=== PATIENT | male | born 1955 | race Caucasian/White ===

== ENCOUNTER 2017-01-23 09:38 | Inpatient (IN) ==
--- NOTE | 2017-01-20 20:35 | Discharge Summary ---
<Flora Lin L - Last Filed: 01/22/17 21:06> - Discharge Diagnosis (1) Arthritis of knee, right Priority: Primary Status: Acute (2) CORBIN (obstructive sleep apnea) Priority: Secondary Status: Chronic Comments: *CPAP (3) Obesity Priority: Secondary Status: Chronic Qualifiers: Obesity type: unspecified obesity type Obesity severity: unspecified obesity severity Qualified Code(s): E66.9 - Obesity, unspecified (4) Family history of supraventricular tachycardia Priority: Secondary Status: Chronic (5) CHF (congestive heart failure) Priority: Secondary Status: Chronic Qualifiers: Congestive heart failure type: unspecified congestive heart failure type Congestive heart failure chronicity: unspecified congestive heart failure chronicity Qualified Code(s): I50.9 - Heart failure, unspecified - Discharge Medications Home Medications: Aspirin Enteric Coated [Aspirin EC] 325 mg PO DAILY #21 tablet. 01/22/17 [Rx] OxyCODONE Immed Rel [Roxicodone 5 MG] 5 - 10 mg PO Q6HR PRN #40 tablet 01/22/17 [Rx] Albuterol Sulfate [Albuterol Inhaler] 2 puff IH Q4HR PRN 01/23/17 [History] Aspirin Enteric Coated [Aspirin EC] 81 mg PO DAILY 01/23/17 [History] Doxazosin [Cardura] 8 mg PO HS 01/23/17 [History] Fluticasone/Salmeterol [Advair 250-50 Diskus] 2 puff IH BID 01/23/17 [History] Furosemide [Lasix] 40 mg PO DAILY 01/23/17 [History] Mometasone Furoate [Nasonex] 2 spr NS DAILY PRN 01/23/17 [History] Montelukast [Singulair] 10 mg PO HS 01/23/17 [History] Allergies/Adverse Reactions: Allergies Sulfa (Sulfonamide Antibiotics) Allergy (Verified 01/23/17 10:11) Hives celecoxib [From Celebrex] Adverse Reaction (Verified 01/23/17 10:11) See Comments bleeding Cyclobenzaprine Adverse Reaction (Verified 01/23/17 10:11) Itching Primary care physician: Yo Burdick, - Patient Status Disposition: Transfer Inpatient Rehab Fac Condition: Good - Discharge Instructions Follow Up With: Yo Burdick DO [Primary Care Provider] - - Hospital Course Hospital course: Mr. Dunne is a 61 year old male - Time Spent with Patient Total time spent providing and/or coordinating discharge services: <Ivana Phillipsrenetta Soaresh - Last Filed: 01/25/17 06:54> Date of Encounter: 01/25/17 Time of Encounter: 06:53 - Discharge Diagnosis (1) Arthritis of knee, right Priority: Primary Status: Acute (2) CORBIN (obstructive sleep apnea) Priority: Secondary Status: Chronic (3) Obesity Priority: Secondary Status: Chronic Qualifiers: Obesity type: unspecified obesity type Obesity severity: unspecified obesity severity Qualified Code(s): E66.9 - Obesity, unspecified (4) Family history of supraventricular tachycardia Priority: Secondary Status: Chronic (5) CHF (congestive heart failure) Priority: Secondary Status: Chronic Qualifiers: Congestive heart failure type: combined Congestive heart failure chronicity : unspecified congestive heart failure chronicity Qualified Code(s): I50.40 - Unspecified combined systolic (congestive) and diastolic (congestive) heart failure Primary care physician: Yo Burdick, - Patient Status Functional capacity at discharge: uses cane/walker Overall status at discharge: patient is progressing back to baseline - Hospital Course Hospital course: Mr. Dunne is a 61 year old male The patient had an uneventful postoperative course. They received antibiotics and physical therapy and were discharged in stable condition. There will follow -up in the office in 2 weeks. Aspirin DVT prophylaxis - Time Spent with Patient Total time spent providing and/or coordinating discharge services:
[2017-01-23] MEDS ORDERED: Albuterol 2.5 MG/3 ML NEBULIZER IH ONE (10:04)
[2017-01-23] MEDS ORDERED: CeFAZolin Pre 2,000 MG/100 ML 2,000 MG/100 ML BAG IVPB ONE (10:04)
--- NOTE | 2017-01-23 10:17 | History & Physical Report ---
Date of Encounter: 01/23/17 Time of Encounter: 10:16 24 Hour HP Update - Instructions Instructions: If the History and Physical is less than 30 days old and was completed prior to A.M. admission and or procedure and has NOT been updated on calendar day of procedure please complete this update prior to performing procedure. - Update Patient reports changes in Medical Condition: No Changes in assessment/condition: No Changes in Medication: No Preop tests/diagnostics Reviewed: Yes Surgery Remains Indicated: Yes Consent for Planned Operative Procedure(s) Verified: Yes - Pre-Operative Checklist Preoperative Checklist Indicated: No Prophylactic Antibiotic Ordered: Yes Is VTE Prophylaxis Indicated?: Yes
[2017-01-23] MEDS ORDERED: Famotidine 20 MG/2 ML VIAL IVP ONE (10:23)
[2017-01-23] MEDS: Ringers Solution, Lactated 500 ML IVC SCH ×3 (10:25→13:18)
--- NOTE | 2017-01-23 11:14 | Anesthesia Evaluation PreOp ---
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: Denies Any Significant HX Other Medical History: GERD Anesthesia History: No Prior Anesthetic Complications Alcohol Use: none Drug use: none Medications and Allergies Aspirin Enteric Coated [Aspirin EC] 325 mg PO DAILY #21 tablet.dr 01/22/17 [Rx] OxyCODONE Immed Rel [Roxicodone 5 MG] 5 - 10 mg PO Q6HR PRN #40 tablet 01/22/17 [Rx] Albuterol Sulfate [Albuterol Inhaler] 2 puff IH Q4HR PRN 01/23/17 [History] Aspirin Enteric Coated [Aspirin EC] 81 mg PO DAILY 01/23/17 [History] Doxazosin [Cardura] 8 mg PO HS 01/23/17 [History] Fluticasone/Salmeterol [Advair 250-50 Diskus] 2 puff IH BID 01/23/17 [History] Furosemide [Lasix] 40 mg PO DAILY 01/23/17 [History] Mometasone Furoate [Nasonex] 2 spr NS DAILY PRN 01/23/17 [History] Montelukast [Singulair] 10 mg PO HS 01/23/17 [History] Allergies Sulfa (Sulfonamide Antibiotics) Allergy (Verified 01/23/17 10:11) Hives celecoxib [From Celebrex] Adverse Reaction (Verified 01/23/17 10:11) See Comments bleeding Cyclobenzaprine Adverse Reaction (Verified 01/23/17 10:11) Itching - Meds/Allergy Pre-op Review Medications Reviewed: Yes Allergies Reviewed: Yes Beta Blockers on Current Med List: No Anesthesia Results - Labs Laboratory Tests 01/16/17 01/16/17 01/16/17 14:00 14:00 14:00 Hgb 14.5 Hct 42.3 Plt Count 184 Sodium 137 Potassium 4.2 BUN 16 Creatinine 0.93 - Imaging EKG: report reviewed (SR) Additional studies: EF 55-60% ECHO 2015 Stress test Neg Anesthesia Exam O2 Sat Height 1.75 m Height 1.75 m Height 1.75 m Weight 110.223 kg Weight 110.223 kg Weight 110.223 kg O2 Sat by Pulse Oximetry 94 O2 Sat by Pulse Oximetry 94 O2 Sat by Pulse Oximetry 94 Vital Signs Temp Pulse Resp BP Pulse Ox 98.5 F 82 16 143/92 94 L 01/23/17 10:00 01/23/17 10:00 01/23/17 10:00 01/23/17 10:00 01/23/17 10:00 Height: 5'9 Weight: 240 lbs NPO (# of Hours): MN Pain Scale: 0 - HEENT Pupil (Motor): Pupils equal, EOMI Teeth: Edentulous Oral Opening: Less than or equal to 3 - ZIPPER TRIMMER HAND LOC: Oriented ZIPPER TRIMMER HAND Motor: Normal RUE, Normal LUE, Normal RLE, Normal LLE, Normal Face ZIPPER TRIMMER HAND Sensory: Normal: RUE, LUE, RLE, LLE, Face - Cardiac Rhythm: Regular Murmur: None JVD: No Carotid Bruit: No - Pulmonary Breath Sounds: bilateral Clear Respiratory Effort: Symmetrical Anesthesia Assess/Plan ASA Score: 3 (CORBIN COPD Hx CHF) Modified [place] Scale for Level of Consciousness: Cooperative, oriented, and tranquil Anesthetic Plan: General, Regional Monitoring Plan: Standard Monitors Recovery Plan: PACU (Discussed GA and RA, agrees to proceed)
[2017-01-23] MEDS ORDERED: *HR* FentaNYL (PF) 100 MCG/2 ML VIAL ONE ×2 (11:35→15:03)
[2017-01-23] MEDS ORDERED: Lidocaine -MPF 2% 2 ML VIAL ONE (11:35)
[2017-01-23] MEDS ORDERED: *HR* Midazolam HCl 2 MG/2 ML VIAL ONE ×2 (11:35→12:41)
[2017-01-23] MEDS ORDERED: *HR* Propofol 200 MG/20 ML VIAL IVP ONE (11:35)
[2017-01-23] MEDS ORDERED: Ondansetron 4 MG/2 ML VIAL ONE (11:37)
[2017-01-23] MEDS ORDERED: Dexamethasone 4 MG/ML VIAL ONE (11:37)
[2017-01-23] MEDS ORDERED: Tetracaine/PF 20 MG/2 ML AMPUL SPINA ONE (12:28)
[2017-01-23] MEDS ORDERED: Bupivacaine/Clonidine Syringe 1 EACH SYRINGE ONE (12:29)
[2017-01-23] MEDS ORDERED: *HR* HYDROmorphone 2 MG/ML SYRINGE ONE (13:12)
--- NOTE | 2017-01-23 13:35 | Orthopedic Operative Note ---
Date of procedure: 01/23/17 Pre-op diagnosis: Right knee arthritis Post-op diagnosis: same Procedure: Procedure: Right Total knee replacement Estimated blood loss: 400 cc Hardware: Arthrex Femur: 7 Tibia: 7 PS insert: 11 Patella: 40 Exam Under anesthesia: Full motion no instability Procedural Notes: Grade 3 arthritic changes medial compartment patellofemoral joint. Operative procedure: The patient was brought to the operating room and placed on the operating room table. After general anesthesia was administered the operative knee was examined. Findings were noted in the exam under anesthesia. The operative extremity was prepped and draped in sterile surgical fashion. The patient received IV antibiotics prior to skin incision. A standard midline incision was made centered over the patella. The incision was made through the skin and subcutaneous tissue. A medial parapatellar tendon approach was performed. Care was taken to preserve tissue along the medial aspect of the patella. And to protect the patella tendon. The deep MCL was released off the medial tibia. The infra patella fat pad was excised. Knee was brought into flexion. Patient noted to have grade 3 arthritic changes medial compartment and patellofemoral joint. The entry hole was made for the intramedullary femoral guide. The guide was seated in 6 degrees of valgus. Anterior cut was made followed by the distal cut. The ACL the PCL the medial and the lateral menisci were excised. The tibia was subluxed forward. The entry hole was made for the intramedullary tibial guide. Guide was seated to resect 2 mm off the more abnormal side. The knee was brought into flexion the distal femur was sized to a 7. The femoral guide was seated, the anterior cut was made followed by the posterior condylar cut, followed by the chamfer cuts. The finishing guide was seated the box cut was made and the lug holes were drilled. The tibia was sized to a 7, the tibial tray was seated and prepared with the large drill followed by the fin cutter. Trial reduction revealed full extension no varus valgus instability with the appropriate 11 PS Karoline. The patella was everted and cut was made at the level of the insertion of the quadriceps and patella tendon. The patella was sized to a 40 the guide was seated and the lug holes are drilled. Trial reduction revealed excellent patella tracking. All trial components were removed all bony surfaces were irrigated. The tibia was cemented first followed by the femur. The 11 PS Karoline was seated and the knee was brought into full extension. The patella was cemented and held in place with the patellar holding clamp. After the cement had hardened, the knee sat for 2 minutes with a Betadine saline solution. The knee was then irrigated out with 2 L of pulse irrigation. The extensor mechanism was closed with #2 FiberWire suture and #2 PDS suture. The subcutaneous tissue was then irrigated and closed deep with #1 PDS suture superficially with 0 PDS suture and skin was closed with skin erik. The patient was then placed in a sterile dressing and a postoperative brace extubated and transferred to recovery room in stable condition. Anesthesia: FARHAN Surgeon: Umesh Phillips [place] Captain: Flora Lin Condition: stable Disposition: PACU
[2017-01-23] MEDS ORDERED: *HR* HYDROmorphone (PF) 1 MG/ML SYRINGE ONE ×4 (14:07→14:37)
[2017-01-23] MEDS: *HR* HYDROmorphone (PF) 1 MG/ML SYRINGE IVP PRN ×9 (14:10→16:43)
[2017-01-23 14:48] LABS: Hematocrit 36.8 % (37.5-50.1)
[2017-01-23] MEDS ORDERED: *HR* FentaNYL (PF) 100 MCG/2 ML VIAL IVP ONE (15:07)
[2017-01-23] MEDS ORDERED: *HR* OxyCODONE Immed Rel 5 MG TABLET PO PRN (15:34)
[2017-01-23] MEDS ORDERED: Ondansetron 4 MG/2 ML VIAL IVP PRN (15:34)
[2017-01-23] MEDS ORDERED: Naloxone 0.4 MG/ML INJ IVP PRN (15:34)
[2017-01-23] MEDS ORDERED: MOM Conc 10 ML UD.LIQ PO PRN (15:34)
[2017-01-23] MEDS ORDERED: Ringers Solution, Lactated 1,000 ML IVC SCH (15:34)
[2017-01-23] MEDS ORDERED: Sennosides 8.6 MG TABLET PO PRN (15:34)
[2017-01-23] MEDS ORDERED: Fluticasone Propionate Nasal 50 MCG/SPRAY BOTTLE NS PRN (15:34)
--- NOTE | 2017-01-23 15:56 | Anesthesia Evaluation Post Op ---
Date of Encounter: 01/23/17 Time of Encounter: 15:20 - Vital Signs Vital Signs: Vital Signs/O2 Sat/Glucose, Most Current Temp Pulse Resp BP Pulse Ox 01/23/17 15:15 97.1 F L 71 16 132/83 97 01/23/17 15:00 97.1 F L 71 16 135/96 97 01/23/17 14:45 71 16 140/91 97 01/23/17 14:30 97.2 F L 73 16 137/63 97 01/23/17 14:20 81 16 136/91 97 01/23/17 14:10 86 16 134/88 99 01/23/17 14:00 97.2 F L 89 16 140/88 99 01/23/17 12:31 92 151/98 98 - Lungs Lungs: Clear Ascult./Percussion - Airway Airway: Non-obstructed - Cardiovascular Regular Rate - Mental Status Mental Status: Alert & Oriented, Answers Appropriately - Pain Pain Scale: 3 - Nausea Vomiting Nausea Vomiting: Not Present - Hydration Hydration: NPO - Discharge PostOp Status: Transfer Patient to floor
[2017-01-23] MEDS: *HR* Enoxaparin 30 MG/0.3 ML SYRINGE SQ SCH (16:43)
[2017-01-23] MEDS ORDERED: *HR* Enoxaparin 30 MG/0.3 ML SYRINGE SQ SCH (18:00)
[2017-01-23] MEDS: ceFAZolin 2,000 MG in D5% in Water 100 ML IVPB SCH (19:56)
[2017-01-23] MEDS ORDERED: Temazepam 15 MG CAPSULE PO PRN (21:00)
[2017-01-23] MEDS: Budesonide/Formoterol 80/4.5 MDI IH SCH (22:31)
[2017-01-24] MEDS: *HR* OxyCODONE Immed Rel 5 MG TABLET PO PRN ×5 (01:16→23:47)
[2017-01-24] MEDS: Acetaminophen 325 MG TABLET PO PRN (03:36)
[2017-01-24] MEDS: ceFAZolin 2,000 MG in D5% in Water 100 ML IVPB SCH (03:41)
[2017-01-24] MEDS: *HR* Enoxaparin 30 MG/0.3 ML SYRINGE SQ SCH ×2 (05:45→17:51)
--- NOTE | 2017-01-24 06:40 | Orthopedics Progress Note ---
Date of Encounter: 01/24/17 Time of Encounter: 06:40 - Assessment and Plan (1) Arthritis of knee, right Current Visit: Yes Status: Acute (2) CORBIN (obstructive sleep apnea) Current Visit: Yes Status: Chronic (3) Obesity Current Visit: Yes Status: Chronic Qualifiers: Obesity type: unspecified obesity type Obesity severity: unspecified obesity severity Qualified Code(s): E66.9 - Obesity, unspecified (4) Family history of supraventricular tachycardia Current Visit: Yes Status: Chronic (5) CHF (congestive heart failure) Current Visit: Yes Status: Chronic Qualifiers: Congestive heart failure type: combined Congestive heart failure chronicity : unspecified congestive heart failure chronicity Qualified Code(s): I50.40 - Unspecified combined systolic (congestive) and diastolic (congestive) heart failure Subjective Interval history: pt doing well no complaints afvss operative extremity NVI dressing c/d/i calves nt continue postop care hct 36 Objective Vital signs: Vital Signs Temp Pulse Resp BP Pulse Ox 01/24/17 04:00 97.5 F L 70 16 134/85 96 01/24/17 00:00 97.7 F 74 15 123/80 98 01/23/17 20:19 97.6 F 73 12 120/81 94 L 01/23/17 19:30 97.7 F 74 12 119/73 95 01/23/17 18:36 97.7 F 83 18 125/73 95 01/23/17 17:31 77 18 115/82 93 L 01/23/17 16:39 97.6 F 77 18 115/82 93 L 01/23/17 15:54 98 F 73 18 122/71 95 01/23/17 15:15 97.1 F L 71 16 132/83 97 01/23/17 15:00 97.1 F L 71 16 135/96 97 01/23/17 14:45 71 16 140/91 97 01/23/17 14:30 97.2 F L 73 16 137/63 97 01/23/17 14:20 81 16 136/91 97 01/23/17 14:10 86 16 134/88 99 01/23/17 14:00 97.2 F L 89 16 140/88 99 01/23/17 12:31 92 151/98 98 01/23/17 10:09 98.5 F 82 16 143/92 94 L 01/23/17 10:00 98.5 F 82 16 143/92 94 L Intake and Output 01/23/17 01/23/17 01/24/17 15:59 23:59 07:59 Intake Total 1100 / 1100 300 / 300 200 / 200 Output Total 200 / 200 200 / 200 Balance 900 / 900 300 / 300 0 / 0 Intake: IV Fluids 1100 / 1100 100 / 100 Lactated Ringers 500 ML @ 1000 / 1000 75 mls/hr IVC .Q6H40M [facility] Rx#:[id number] Ancef 2,000 MG In 100 / 100 Dextrose 5% 100 ML @ 200 mls/hr IVPB Q8H [facility] Rx#: [id number] Ancef Premix 2,000 MG/100 100 / 100 ML 2,000 mg In 100 ml @ 200 mls/hr IVPB PREOP ONE Rx#:[id number] Oral 200 / 200 200 / 200 Output: Emesis 200 / 200 Estimated Blood Loss 200 / 200 Other: Meal Dinner Percent of Meal Consumed 100% # Voids 1 1 Weight 110.223 kg - Labs CBC & BMP: 01/23/17 14:38 Labs: Abnormal lab results Hgb 12.0 g/dL (12.9-16.9) L 01/23/17 14:38 Hct 36.8 % (37.5-50.1) L 01/23/17 14:38 - VTE Documentation of Mechanical Device: Venous foot pump, device Consult Discharge Plan - Plan Referrals: Yo Burdick DO [Primary Care Provider] -
[2017-01-24 06:42] LABS: Hematocrit 32.1 % (37.5-50.1); Hemoglobin 10.6 g/dL (12.9-16.9)
[2017-01-24 06:55] LABS: BUN/Creatinine Ratio 16 (6-26); Blood Urea Nitrogen 14 mg/dL (8-26); Calcium 7.8 mg/dL (8.6-10.8); Carbon Dioxide 24 mEq/L (19-29); Chloride 106 mEq/L (98-109); Glucose 110 mg/dL (70-99); Osmolality,Calculated 285 (280-300); Potassium 3.8 mEq/L (3.5-4.5); Sodium 137 mEq/L (136-145); eGFR For African Americans > 60 (> 60); eGFR For Non-African Americans > 60 (> 60)
[2017-01-24] MEDS: Furosemide 40 MG TABLET PO SCH (09:15)
[2017-01-24] MEDS: Aspirin Enteric Coated 81 MG Tablet PO SCH (09:15)
[2017-01-24] MEDS: Budesonide/Formoterol 80/4.5 MDI IH SCH ×2 (10:38→22:57)
[2017-01-24] MEDS ORDERED: *HR* HYDROmorphone 2 MG/ML SYRINGE IVP ONE (13:31)
[2017-01-24] MEDS: *HR* HYDROmorphone (PF) 1 MG/ML SYRINGE IVP PRN (21:27)
[2017-01-25] MEDS: *HR* OxyCODONE Immed Rel 5 MG TABLET PO PRN ×2 (03:46→09:05)
[2017-01-25] MEDS: *HR* Enoxaparin 30 MG/0.3 ML SYRINGE SQ SCH (05:22)
--- NOTE | 2017-01-25 06:54 | Orthopedics Progress Note ---
Date of Encounter: 01/25/17 Time of Encounter: 06:54 - Assessment and Plan (1) Arthritis of knee, right Current Visit: Yes Status: Acute (2) CORBIN (obstructive sleep apnea) Current Visit: Yes Status: Chronic (3) Obesity Current Visit: Yes Status: Chronic Qualifiers: Obesity type: unspecified obesity type Obesity severity: unspecified obesity severity Qualified Code(s): E66.9 - Obesity, unspecified (4) Family history of supraventricular tachycardia Current Visit: Yes Status: Chronic (5) CHF (congestive heart failure) Current Visit: Yes Status: Chronic Qualifiers: Congestive heart failure type: combined Congestive heart failure chronicity : unspecified congestive heart failure chronicity Qualified Code(s): I50.40 - Unspecified combined systolic (congestive) and diastolic (congestive) heart failure Subjective Interval history: pt doing well no complaints afvss operative extremity NVI dressing c/d/i calves nt continue postop care discharged today Objective Vital signs: Vital Signs Temp Pulse Resp BP Pulse Ox 01/25/17 06:22 99.6 F 90 16 148/84 95 01/25/17 03:32 99.1 F 96 96 01/24/17 23:49 99.2 F 107 16 132/79 96 01/24/17 21:00 99.8 F H 94 17 156/88 96 01/24/17 14:57 96.6 F L 93 16 148/87 95 01/24/17 10:54 98.9 F 91 16 140/70 97 01/24/17 10:44 18 97 01/24/17 07:00 99.7 F H 86 16 137/65 95 Intake and Output 01/24/17 01/24/17 01/25/17 15:59 23:59 07:59 Intake Total 400 / 400 400 / 400 Output Total 350 / 350 Balance 400 / 400 50 / 50 Intake: Oral 400 / 400 400 / 400 Output: Urine 350 / 350 Other: Meal Lunch Percent of Meal Consumed 70% # Voids 1 1 - Labs CBC & BMP: 01/24/17 06:07 01/24/17 06:07 Labs: Abnormal lab results Hgb 10.6 g/dL (12.9-16.9) L 01/24/17 06:07 Hct 32.1 % (37.5-50.1) L 01/24/17 06:07 Glucose 110 mg/dL (70-99) H 01/24/17 06:07 Calcium 7.8 mg/dL (8.6-10.8) L 01/24/17 06:07 - VTE Documentation of Mechanical Device: Venous foot pump, device Consult Discharge Plan - Plan Referrals: Yo Burdick DO [Primary Care Provider] -
[2017-01-25 06:56] LABS: Hematocrit 33.9 % (37.5-50.1)
[2017-01-25 07:07] LABS: BUN/Creatinine Ratio 15 (6-26); Blood Urea Nitrogen 13 mg/dL (8-26); Carbon Dioxide 25 mEq/L (19-29); Chloride 103 mEq/L (98-109); Glucose 115 mg/dL (70-99); Osmolality,Calculated 283 (280-300); Potassium 3.8 mEq/L (3.5-4.5); Sodium 136 mEq/L (136-145); eGFR For African Americans > 60 (> 60); eGFR For Non-African Americans > 60 (> 60)
[2017-01-25 07:17] LABS: Calcium 8.5 mg/dL (8.6-10.8)
[2017-01-25] MEDS: Acetaminophen 325 MG TABLET PO PRN (08:08)
[2017-01-25] MEDS: Aspirin Enteric Coated 81 MG Tablet PO SCH (08:08)
[2017-01-25] MEDS: Furosemide 40 MG TABLET PO SCH (08:10)
[2017-01-25] MEDS: Budesonide/Formoterol 80/4.5 MDI IH SCH (10:19)
[2017-01-25 10:36] VITALS: BP 142/81
== END 2017-01-25 12:12 | DRG 470 ==
LOC: SAMDAY 09:38 → 3NENU 15:28
PROVIDERS: ADMIT Orthopaedic Surgery; ATTEND Orthopaedic Surgery

== ENCOUNTER 2018-10-01 06:43 | Inpatient (IN) ==
--- NOTE | 2018-10-01 06:53 | History & Physical Report ---
Date of Encounter: 10/01/18 Time of Encounter: 06:53 24 Hour HP Update - Instructions Instructions: If the History and Physical is less than 30 days old and was completed prior to A.M. admission and or procedure and has NOT been updated on calendar day of procedure please complete this update prior to performing procedure. - Update Patient reports changes in Medical Condition: No Changes in examination, assessment, or condition: No Changes in Medication: No Preop tests/diagnostics Reviewed: Yes Surgery Remains Indicated: Yes Consent for Planned Operative Procedure(s) Verified: Yes - Pre-Operative Checklist Preoperative Checklist Indicated: No Prophylactic Antibiotic Ordered: Yes Is VTE Prophylaxis Indicated?: Yes
[2018-10-01] MEDS ORDERED: CeFAZolin Syr 2,000MG/20 ML 2,000 MG/20 ML SYRINGE IVPB ONE (07:02)
[2018-10-01] MEDS ORDERED: Albuterol 2.5 MG/3 ML NEBULIZER IH ONE (07:02)
[2018-10-01] MEDS ORDERED: Ringers Solution, Lactated 1,000 ML IVC SCH (07:15)
--- NOTE | 2018-10-01 07:17 | Anesthesia Evaluation PreOp ---
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: Denies Any Significant HX Other Medical History: GERD Anesthesia History: No Prior Anesthetic Complications, Past Anesthesia Alcohol Use: none Drug use: none Medications and Allergies Albuterol Sulfate [Albuterol Inhaler] 2 puff IH Q4HR PRN 01/23/17 [History] Aspirin Enteric Coated [Aspirin EC] 81 mg PO DAILY 01/23/17 [History] Doxazosin [Cardura] 8 mg PO HS 01/23/17 [History] Fluticasone/Salmeterol [Advair 250-50 Diskus] 2 puff IH BID 01/23/17 [History] Furosemide [Lasix] 40 mg PO DAILY 01/23/17 [History] Montelukast [Singulair] 10 mg PO HS 01/23/17 [History] Allergy/AdvReac Type Severity Reaction Status Date / Time Sulfa (Sulfonamide Allergy Hives Verified 10/01/18 08:05 Antibiotics) celecoxib [From Celebrex] AdvReac See Verified 10/01/18 08:05 Comments - Meds/Allergy Pre-op Review Medications Reviewed: Yes Allergies Reviewed: Yes Beta Blockers on Current Med List: No Anesthesia Results - Labs Laboratory Tests 09/24/18 09/24/18 09/24/18 16:20 16:20 16:20 WBC 7.2 Hgb 13.2 Hct 39.4 Plt Count 166 PT 11.8 INR 1.0 APTT 28.9 Sodium 139 Potassium 3.9 BUN 20 Creatinine 0.87 - Imaging EKG: report reviewed (01/16/2017 SINUS RHYTHM POSSIBLE LEFT ATRIAL ENLARGEMENT) Additional studies: 07/13/2018 Stress Impression: Perfusion study is negative for ischemia or infarct. Normal perfusion study. Stress LVEF 67%. No ischemic stress ECG findings. Hypertensive response during stress test. 08/03/2015 Echo LVEF 60% normal LV structure and function mild LV diastolic dysfunction no significant valvular dysfunction. 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
[2018-10-01] MEDS ORDERED: Lidocaine -MPF 4% 5 ML AMPUL ONE (07:35)
[2018-10-01] MEDS ORDERED: *HR* FentaNYL (PF) 100 MCG/2 ML VIAL ONE ×2 (07:35→09:01)
[2018-10-01] MEDS ORDERED: *HR* Succinylcholine 200 MG/10 ML VIAL IVP ONE (07:35)
[2018-10-01] MEDS ORDERED: *HR* Rocuronium Bromide 50 MG/5 ML VIAL ONE (07:35)
[2018-10-01] MEDS ORDERED: Lidocaine -MPF 2% 2 ML VIAL ONE (07:35)
[2018-10-01] MEDS ORDERED: *HR* Midazolam HCl 2 MG/2 ML VIAL ONE (07:36)
[2018-10-01] MEDS ORDERED: *HR* Propofol 200 MG/20 ML VIAL IVP ONE (07:36)
[2018-10-01] MEDS ORDERED: Ethanol\\Acetic Acid\\Na Ace\\Ben 1,000 ML IRRIG.SOLN IR ONE (07:40)
[2018-10-01] MEDS ORDERED: *HR* Promethazine 25 MG/ML VIAL IVP PRN (07:42)
[2018-10-01] MEDS ORDERED: Ondansetron 4 MG/2 ML VIAL IVP ONE (07:42)
[2018-10-01] MEDS ORDERED: *HR* Labetalol 20 MG/4 ML SYRINGE IVP PRN (07:42)
[2018-10-01] MEDS ORDERED: *HR* OxyCODONE Immed Rel 5 MG TABLET PO PRN (07:42)
[2018-10-01] MEDS ORDERED: *HR* Meperidine 25 MG/ML SYRINGE IVP PRN (07:42)
[2018-10-01] MEDS ORDERED: ROPIVACAINE HCL/PF 0.5% 30 ML VIAL ONE (08:08)
[2018-10-01] MEDS ORDERED: *HR* EPINEPHrine 1 MG/ML AMPUL ONE (08:08)
[2018-10-01] MEDS ORDERED: Bupivacaine/Clonidine Syringe 1 EACH SYRINGE ONE (08:08)
[2018-10-01] MEDS ORDERED: *HR* Midazolam HCl 5 MG/5 ML VIAL IVP ONE (08:33)
--- NOTE | 2018-10-01 08:47 | Anesthesia Procedures ---
Date of Encounter: 10/01/18 Time of Encounter: 08:45 Procedures: Anesthesia - Nerve Block Procedure Date: 10/01/18 Time: 08:45 Allergies/Adv Reactions: sulfa, celecoxib Pre-op Diagnosis: L knee aseptic loosening tibia Surgical Procedure: L TKA, L tibia revision Checklist: Correct Patient Identifier, Correct procedure, History checked Correct side: Left Blood Thinner: Yes (81mg ASA) Monitor Applied: EKG, BP, Pulse Oximetry Supplemental Oxygen via Nasal Cannula (L/min): 3 Sedation: Versed (mg): 6 Sedation: Fentanyl (mcg): 200 Indication: Post Op Analgesia (requested by Dr. Phillips) Pre-op Neuro Deficits: No Block Type: Femoral, Other (iPAC, JACKIE) Catheter placed: No Sterile Technique: Yes Ultrasound used: Yes Anatomy identified: Yes Visual spread of Local: Yes Neuro Stimulation: Yes Nerve Stimulator Range: 0.2 - 0.4 mA Blood on Needle Aspiration: No Smooth Injection of Local: Yes Pain with Injection of Local: No Prep: Chlorhexadine Needle: 22 x 50 mm Stimuplex (for femoral n. block), 21 x 100 mm Stimuplex (for iPAC & JACKIE injections) Local: 0.25% Bupivicaine w/Clonidine 20 mcg/cc (10mL for iPAC, 10mL for JACKIE), Ropivacaine (30mL of 0.5% + 5mcg/mL epinephrine + 8mg dexamethasone for femoral n. block) Number of Attempts: 1 Complications: None/effective block Vitals: please see holding vital signs note
[2018-10-01] MEDS ORDERED: Neostigmine Methylsulfate 3 MG/3 ML SYRINGE ONE (09:14)
[2018-10-01] MEDS ORDERED: Dexamethasone 4 MG/ML VIAL ONE (09:14)
[2018-10-01] MEDS ORDERED: Ondansetron 4 MG/2 ML VIAL ONE (09:14)
[2018-10-01] MEDS ORDERED: *HR* PHENYLEPHRINE 1,000 MCG/10 ML SYRINGE IVP ONE (09:23)
[2018-10-01] MEDS ORDERED: EPHEDrine 50 MG/ML VIAL ONE (09:29)
--- NOTE | 2018-10-01 09:58 | Orthopedic Operative Note ---
Date of procedure: 10/01/18 Pre-op diagnosis: Aseptic loosening left tibial component Post-op diagnosis: same Procedure: Procedure: Left revision tibial component Estimated blood loss: 200 cc Hardware: Metal and polyethylene replacement Arthrex tibia size 4, 14 x 50stem, 18 PS Karoline Exam Under anesthesia: Full flexion full extension well-healed incision no swelling or erythema no varus valgus instability Procedural Notes: Loosening of tibial component Operative procedure: The patient was brought to the operating room and placed on the operating room table. After general anesthesia was administered the operative knee was examined. Findings were noted in the exam under anesthesia. The operative extremity was prepped and draped in sterile surgical fashion. The patient received IV antibiotics prior to skin incision. A standard midline incision was made centered over the patella. The incision was made through the skin and subcutaneous tissue through the old incision. A medial parapatellar tendon approach was performed. Care was taken to preserve tissue along the medial aspect of the patella. And to protect the patella tendon. The deep MCL was released off the medial tibia. The infra patella fat pad was excised. Cultures were obtained as well as Gram stain. 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 An extensive synovectomy was performed. The knee was brought into flexion the tibial poly-was removed. The femur was well fixed. Attention was then turned to the tibial component. The tibial component was loose and removed with an osteotome without any bone loss. Tibia was recut just below the level of the cement mantle. The tibia was prepared first sized to a 4 reamed to a 14 x 50 stem. The finishing punch was seated. Trial had good fit and fixation. Trial reduction revealed full extension and full flexion no varus valgus instability with an 18 PS Karoline. Intraoperative plain x-ray revealed good alignment on AP. Trial components removed knee sat for 2 minutes with a antibacterial solution. It was irrigated out with pulse irrigation. Components were assembled on the back table. The tibia cemented. The 18 PS Karoline was seated and secure. The had full flexion and full extension and excellent patella tracking no varus valgus instability. After the cement hardened the knee was irrigated out again. The knee was taken through a range of motion had excellent patella tracking. The PA close the knee. The extensor mechanism was closed with a running #2 Fiberwire suture and a running #2 PDS suture. The deep tissue was irrigated and closed deep with #1 PDS suture superficially with 0 PDS suture. The skin was closed with Dermabond and skin erik. The patient was placed in a sterile dressing and postoperative brace. They were extubated and transferred to recovery room in stable condition. Anesthesia: GETA Surgeon: Umesh Phillips Was there an diver assistant present: No Estimated blood loss (cc): 200 Condition: stable Disposition: PACU
[2018-10-01] MEDS: *HR* HYDROmorphone (PF) 1 MG/ML SYRINGE IVP PRN ×2 (10:35→10:40)
[2018-10-01 11:19] LABS: Hematocrit 37.5 % (37.5-50.1); Hemoglobin 12.4 g/dL (12.9-16.9)
--- NOTE | 2018-10-01 11:26 | Anesthesia Evaluation Post Op ---
Date of Encounter: 10/01/18 Time of Encounter: : - Vital Signs Vital Signs: Vital Signs/O2 Sat, Most Current Temp Pulse Resp BP Pulse Ox 97.7 F 82 15 117/72 95 10/01/18 11:09 10/01/18 11:09 10/01/18 11:09 10/01/18 11:09 10/01/18 11:09 - Lungs Lungs: Clear Ascult./Percussion - Airway Airway: Non-obstructed - Cardiovascular Regular Rate - Mental Status Mental Status: Asleep with brisk response to light stimulation - Pain Pain Scale: 6 Pain Scale used: Numeric (1 - 10) - Nausea Vomiting Nausea Vomiting: Not Present - Hydration Hydration: Ice chips, Has not voided - Discharge PostOp Status: Transfer Patient to floor
[2018-10-01] MEDS ORDERED: Temazepam 15 MG CAPSULE PO PRN (11:40)
[2018-10-01] MEDS ORDERED: Naloxone 0.4 MG/ML INJ IVP PRN (11:40)
[2018-10-01] MEDS ORDERED: Fluticasone Propionate Nasal 50 MCG/SPRAY BOTTLE NS PRN (11:40)
[2018-10-01] MEDS ORDERED: MOM Conc 10 ML UD.LIQ PO PRN (11:40)
[2018-10-01] MEDS ORDERED: Sennosides 8.6 MG TABLET PO PRN (11:40)
[2018-10-01] MEDS ORDERED: Ondansetron 4 MG/2 ML VIAL IVP PRN (11:40)
[2018-10-01] MEDS: Aspirin Enteric Coated 81 MG Tablet PO SCH (12:27)
[2018-10-01] MEDS: Furosemide 40 MG TABLET PO SCH (12:33)
[2018-10-01] MEDS: *HR* OxyCODONE/APAP 5/325 TABLET PO PRN ×3 (12:40→20:40)
[2018-10-01] MEDS: Ringers Solution, Lactated 1,000 ML IVC SCH (16:43)
[2018-10-01] MEDS: *HR* Enoxaparin 30 MG/0.3 ML SYRINGE SQ SCH (16:45)
[2018-10-01] MEDS: Budesonide/Formoterol 80/4.5 MDI IH SCH ×2 (16:46→21:11)
[2018-10-01] MEDS ORDERED: *HR* Enoxaparin 30 MG/0.3 ML SYRINGE SQ SCH (18:00)
[2018-10-02] MEDS: *HR* OxyCODONE/APAP 5/325 TABLET PO PRN (00:43)
[2018-10-02] MEDS: Ringers Solution, Lactated 1,000 ML IVC SCH (01:02)
[2018-10-02] MEDS: *HR* HYDROcodone/Acet 5/325 mg TABLET PO PRN ×3 (03:21→16:21)
[2018-10-02 05:28] LABS: Hematocrit 34.2 % (37.5-50.1); Hemoglobin 11.4 g/dL (12.9-16.9)
[2018-10-02 05:46] LABS: BUN/Creatinine Ratio 24 (6-26); Blood Urea Nitrogen 20 mg/dL (8-23); Calcium 8.3 mg/dL (8.6-10.3); Carbon Dioxide 22 mEq/L (23-29); Chloride 107 mEq/L (98-107); Glucose 173 mg/dL (70-105); Osmolality,Calculated 291 (280-300); Potassium 4.2 mEq/L (3.5-5.1); Sodium 137 mEq/L (136-145); eGFR For Non-African Americans > 60 (> 60)
[2018-10-02] MEDS: *HR* Enoxaparin 30 MG/0.3 ML SYRINGE SQ SCH ×2 (06:07→17:56)
--- NOTE | 2018-10-02 06:35 | Orthopedics Progress Note ---
Date of Encounter: 10/02/18 Time of Encounter: 06:35 Subjective Interval history: Patient was seen this morning doing well without complaints. Afebrile vital signs stable. Operative extremity: Neurovascularly intact Dressing clean dry and intact Calves nontender Assessment and plan: Continue with postoperative care Gram stain negative Objective Vital signs: Vital Signs Temp Pulse Resp BP Pulse Ox 10/02/18 03:59 98.3 F 70 17 118/70 95 10/01/18 23:23 98.7 F 82 17 135/73 96 10/01/18 21:12 14 96 10/01/18 20:48 96 10/01/18 19:38 98.1 F 79 17 127/67 96 10/01/18 15:00 98.2 F 90 115/75 95 10/01/18 13:30 97.8 F 88 122/78 95 10/01/18 12:28 97.9 F 64 122/58 95 10/01/18 11:27 97.4 F L 68 16 112/67 96 10/01/18 11:09 97.7 F 82 15 117/72 95 10/01/18 10:59 97.7 F 77 14 110/75 95 10/01/18 10:49 74 15 115/62 95 10/01/18 10:39 96 17 125/66 96 10/01/18 10:29 97.3 F L 99 18 131/81 95 10/01/18 08:38 79 16 116/77 95 10/01/18 08:20 94 16 128/84 97 10/01/18 07:59 98.5 F 76 18 121/78 94 Intake and Output 10/01/18 10/01/18 10/02/18 15:59 23:59 07:59 Intake Total 640 / 640 200 / 200 Output Total 200 / 200 Balance -200 / -200 640 / 640 200 / 200 Intake: IV Fluids 100 / 100 Ancef 2,000 MG In 0.9 % Sodium 100 / 100 Chloride 100 ML @ 200 mls/hr IVPB Q8H [facility] Rx#:[id number] Oral 540 / 540 200 / 200 Output: Estimated Blood Loss 200 / 200 Other: Meal Dinner Percent of Meal Consumed 100% # Voids 1 1 1 Weight 111.15 kg Patient Weight 10/02/18 23:59 Weight 111.15 kg - Labs CBC & BMP: 10/02/18 05:13 10/02/18 05:13 Labs: Abnormal lab results Hgb 11.4 g/dL (12.9-16.9) L 10/02/18 05:13 Hct 34.2 % (37.5-50.1) L 10/02/18 05:13 Carbon Dioxide 22 mEq/L (23-29) L 10/02/18 05:13 Glucose 173 mg/dL (70-105) H 10/02/18 05:13 Calcium 8.3 mg/dL (8.6-10.3) L 10/02/18 05:13 Consult Discharge Plan - Plan Referrals: Yo Burdick DO [Primary Care Provider] -
[2018-10-02] MEDS: Budesonide/Formoterol 80/4.5 MDI IH SCH ×2 (07:54→20:43)
[2018-10-02] MEDS: Furosemide 40 MG TABLET PO SCH (08:47)
[2018-10-02] MEDS: Aspirin Enteric Coated 81 MG Tablet PO SCH (08:47)
--- NOTE | 2018-10-02 12:22 | Event Note ---
Date of Encounter: 10/02/18 Time of Encounter: 12:21 PCR - POD#1 - Left TKR Tibial Revision 10/01 - Culture: No precautions. Patient seen at bedside, without complaints. A&O x 3 Afebrile, vital signs stable. Labs reviewed. H/H - stable, asymptomatic Pain control: adequate - Added Flexeril 5mg TID, and changed to [place]* Participating in PT. All questions and concerns addressed. Educated on use of incentive spirometer. Encouraged ambulation and proper hydration. Patient educated on post-operative restrictions and post-operative care. Assessment and plan: Continue with postoperative care Discharge plan: ECF, discharge once auth'ed Short CBC 10/02/18 Range/Units 05:13 Hgb 11.4 L (12.9-16.9) g/dL Hct 34.2 L (37.5-50.1) % BMP 10/02/18 Range/Units 05:13 Sodium 137 (136-145) mEq/L Potassium 4.2 (3.5-5.1) mEq/L Chloride 107 (98-107) mEq/L Carbon Dioxide 22 L (23-29) mEq/L BUN 20 (8-23) mg/dL Creatinine 0.84 (0.70-1.30) mg/dL Glucose 173 H (70-105) mg/dL Calcium 8.3 L (8.6-10.3) mg/dL Vital Signs Temp Pulse Resp BP Pulse Ox 10/02/18 07:54 16 96 10/02/18 07:35 98.3 F 74 16 127/68 96 10/02/18 03:59 98.3 F 70 17 118/70 95 10/01/18 23:23 98.7 F 82 17 135/73 96 10/01/18 21:12 14 96 10/01/18 20:48 96 10/01/18 19:38 98.1 F 79 17 127/67 96 10/01/18 15:00 98.2 F 90 115/75 95 10/01/18 13:30 97.8 F 88 122/78 95 10/01/18 12:28 97.9 F 64 122/58 95 Intake and Output 10/01/18 10/02/18 10/02/18 23:59 07:59 15:59 Intake Total 640 / 640 200 / 200 440 / 440 Output Total 300 / 300 Balance 640 / 640 200 / 200 140 / 140 Intake: IV Fluids 100 / 100 Ancef 2,000 MG In 0.9 % Sodium 100 / 100 Chloride 100 ML @ 200 mls/hr IVPB Q8H [facility] Rx#:[id number] Oral 540 / 540 200 / 200 440 / 440 Output: Urine 300 / 300 Other: Meal Dinner Breakfast Percent of Meal Consumed 100% 100% # Voids 1 1 2 Weight 111.15 kg Patient Weight 10/02/18 23:59 Weight 111.15 kg .
[2018-10-02] MEDS: traMADol 50 MG TABLET PO PRN (14:49)
--- NOTE | 2018-10-02 17:22 | Discharge Summary ---
Orders not resulted at time of discharge: Pending orders 10/01/18 Culture,Anaerobic [RM] Routine Culture,Tissue (Biopsy) [RM] Routine 10/01/18 08:07 US anesthesia pain block [US] Routine 10/01/18 09:52 Surgical Pathology [PTH] Routine 10/03/18 04:00 Basic Metabolic Panel AM 0400 Hemoglobin and Hematocrit [HEME] AM 0400 Date of Encounter: 10/04/18 Time of Encounter: 13:28 - Discharge Diagnosis (1) Status post revision of total replacement of left knee Priority: Primary Status: Acute Comments: Opsite dressing, leave intact until first post-operative visit. If dressing becomes >50% saturated, contact office, remove dressing and place appropriate dressing in its place. Do not allow for dressing to get wet. Zipline/[place] in place, plan to remove at post-operative day #14-16. Total Joint Precautions x 6 weeks Apply cold therapy wrap 3-6x/day for 20 minutes at a time. Encourage ambulation throughout the day Use Incentive spirometer 10x/hour. Elevate affected extremity above heart as tolerated. Brace: Wear knee immobilizer at night until first postoperative appointment (2) Mechanical loosening of internal left knee prosthetic joint Priority: Primary Status: Acute Qualifiers: Encounter type: initial encounter Qualified Code(s): T84.033A - Mechanical loosening of internal left knee prosthetic joint, initial encounter (3) PSVT (paroxysmal supraventricular tachycardia) Priority: Secondary Status: Chronic (4) Asthma Priority: Secondary Status: Chronic Qualifiers: Asthma severity: unspecified severity Asthma persistence: unspecified Asthma complication type: uncomplicated Qualified Code(s): J45.909 - Unspecified asthma, uncomplicated (5) HTN (hypertension) Priority: Secondary Status: Chronic Qualifiers: Hypertension type: essential hypertension Qualified Code(s): I10 - Essential (primary) hypertension (6) CORBIN (obstructive sleep apnea) Priority: Secondary Status: Chronic (7) Obesity Priority: Secondary Status: Chronic Qualifiers: Obesity type: due to excess calories Obesity classification: adult class 1 (BMI 30 - 34.9) Serious obesity comorbidity presence: without serious comorbidity Body mass index: BMI 34.0-34.9 Qualified Code(s): E66.09 - Other obesity due to excess calories; Z68.34 - Body mass index (BMI) 34.0-34.9, adult - Hospital Course Hospital course: Mr. Dunne is a 62 year old male - Left TKR Tibial Revision 10/01 - Culture: no growth to date No precautions. Patient seen at bedside, without complaints. A&O x 3 Afebrile, vital signs stable. Vital Signs Temp Pulse Resp BP Pulse Ox 10/04/18 11:20 16 95 10/04/18 10:39 97.7 F 79 16 136/77 95 10/04/18 06:47 97.9 F 69 16 118/71 95 10/04/18 05:11 98.1 F 74 16 126/81 96 10/04/18 00:51 98.1 F 91 16 132/78 96 10/03/18 21:14 18 95 10/03/18 19:43 98.2 F 83 16 150/93 96 10/03/18 15:10 98.0 F 83 18 170/75 95 Intake and Output 10/03/18 10/04/18 10/04/18 23:59 07:59 15:59 Intake Total 200 / 200 100 / 100 240 / 240 Balance 200 / 200 100 / 100 240 / 240 Intake: IV Fluids 200 / 200 100 / 100 Ofirmev 1,000 mg/100 ml 1,000 200 / 200 100 / 100 mg In 100 ml @ 400 mls/hr IVPB Q6HR [facility] Rx#:[id number] Oral 240 / 240 Other: Meal Breakfast Percent of Meal Consumed 80% # Voids 1 # Bowel Movements 1 Weight 112.5 kg Patient Weight 10/04/18 23:59 Weight 112.5 kg Labs reviewed. H/H - stable, asymptomatic Pain control: adequate - Added Flexeril 10mg TID, and changed to [place]* [place]ido added Gabapentin added. Participating in PT. All questions and concerns addressed. Educated on use of incentive spirometer. Encouraged ambulation and proper hydration. Patient educated on post-operative restrictions and post-operative care. Assessment and plan: Continue with postoperative care Discharge plan: ECF, discharge once auth'ed - Time Spent with Patient Total time spent providing and/or coordinating discharge services: - Discharge Medications Prescriptions: Aspirin Enteric Coated [Aspirin EC] 325 mg PO BID #20 tablet. HYDROcodone/Acet 5/325 mg [[place] 5-325 mg] 1 tab PO Q6H PRN 7 Days #28 tablet PRN Reason: Moderate Pain Home Medications: Albuterol Sulfate [Albuterol Inhaler] 2 puff IH Q4HR PRN 01/23/17 [History] Doxazosin [Cardura] 8 mg PO HS 01/23/17 [History] Fluticasone/Salmeterol [Advair 250-50 Diskus] 2 puff IH BID 01/23/17 [History] Furosemide [Lasix] 40 mg PO DAILY 01/23/17 [History] Montelukast [Singulair] 10 mg PO HS 01/23/17 [History] Acetaminophen [Tylenol] 325 mg PO Q6HR PRN 10/01/18 [History] Cyclobenzaprine HCl 10 mg PO TID PRN 10/01/18 [History] Fluticasone Propionate Nasal [Flonase] 1 spr NS DAILY PRN 10/01/18 [History] Lisinopril 2.5 mg PO DAILY 10/01/18 [History] Aspirin Enteric Coated [Aspirin EC] 325 mg PO BID #20 tablet. 10/02/18 [Rx] Docusate [Colace] 100 mg PO BID capsule 10/02/18 [Rx] HYDROcodone/Acet 5/325 mg [[place] 5-325 mg] 1 tab PO Q6H PRN 7 Days #28 tablet 10/02/18 [Rx] Gabapentin [Neurontin] 600 mg PO TID capsule 10/04/18 [Rx] Lidocaine Patch [Lidoderm 5% patch] 1 each TP DAILY adh..patch 10/04/18 [Rx] Allergies/Adverse Reactions: Allergy/AdvReac Type Severity Reaction Status Date / Time Sulfa (Sulfonamide Allergy Hives Verified 10/01/18 08:05 Antibiotics) celecoxib [From Celebrex] AdvReac See Verified 10/01/18 08:05 Comments Date of admission: 10/01/18 11:07 Primary care physician: Silas Burdick DO Consults: 10/01/18 11:40 Consult to Orthopedic Navigator [CONS] [CONS] Routine Consult to Physical Therapy [CONS] Routine Comment: Evaluate, develop and impliment POC Reason for Consult: post knee surgery Does patient have active BEDREST order?: No Is patient medically & hemodynamically stable?: Yes Consult to Metal Pattern Maker [CONS] Routine Reason for SW Consult: post op joint replacement RT Post Op Consult [CONS] Routine Anticipated date of discharge: 10/04/18 Labs on day of discharge: Labs from last 24 hours 10/02/18 10/02/18 05:13 05:13 Hgb 11.4 L Hct 34.2 L Sodium 137 Potassium 4.2 Chloride 107 Carbon Dioxide 22 L BUN 20 Creatinine 0.84 Est GFR ( Amer) > 60 Est GFR (Non-Af Amer) > 60 BUN/Creatinine Ratio 24 Glucose 173 H Calculated Osmolality 291 Calcium 8.3 L Preliminary micro results at discharge 10/01/18 Unknown Surgical Biopsy Culture - Preliminary Left Knee - Impressions ITS Impressions Knee X-Ray 10/01/18 00:01 IMPRESSION: No acute postoperative complication. D/ / 10/01/2018 11:09:17 Tahir Smith MD / Alejandrina Irwin Interpreting Provider: Tahir Smith MD Knee X-Ray 10/01/18 09:45 IMPRESSION: 1. Interval revision of the tibial component of the left knee arthroplasty. D/ / Steve Winslow MD / Steve Winslow MD Interpreting Provider: Steve Winslow MD - Patient Status Disposition: Transfer SNF Condition: Good Functional capacity at discharge: uses cane/walker Overall status at discharge: patient is progressing back to baseline - Discharge Instructions Follow Up With: Yo Burdick DO [Primary Care Provider] - - Diet and Activity Activity: ambulate only with your walker
--- NOTE | 2018-10-02 17:27 | Physician Discharge Referral ---
ExtendedCare Referral Info Transfer To: [facility] Provider in Charge after Transfer: PCP Institutional Level of Care: Skilled - Diagnosis (1) Status post revision of total replacement of left knee Priority: Primary Status: Acute (2) Mechanical loosening of internal left knee prosthetic joint Priority: Primary Status: Acute (3) PSVT (paroxysmal supraventricular tachycardia) Priority: Secondary Status: Chronic (4) Asthma Priority: Secondary Status: Chronic (5) HTN (hypertension) Priority: Secondary Status: Chronic (6) CORBIN (obstructive sleep apnea) Priority: Secondary Status: Chronic (7) Obesity Priority: Secondary Status: Chronic Expected Duration of Placement: < 30 days Prognosis: Good Aware of Diagnosis: Patient Aware of Prognosis: Patient - Transfer Medications Prescriptions: Aspirin Enteric Coated [Aspirin EC] 325 mg PO BID #20 tablet. HYDROcodone/Acet 5/325 mg [[place] 5-325 mg] 1 tab PO Q6H PRN 7 Days #28 tablet PRN Reason: Moderate Pain Home Medications: Albuterol Sulfate [Albuterol Inhaler] 2 puff IH Q4HR PRN 01/23/17 [History] Doxazosin [Cardura] 8 mg PO HS 01/23/17 [History] Fluticasone/Salmeterol [Advair 250-50 Diskus] 2 puff IH BID 01/23/17 [History] Furosemide [Lasix] 40 mg PO DAILY 01/23/17 [History] Montelukast [Singulair] 10 mg PO HS 01/23/17 [History] Acetaminophen [Tylenol] 325 mg PO Q6HR PRN 10/01/18 [History] Cyclobenzaprine HCl 10 mg PO TID PRN 10/01/18 [History] Fluticasone Propionate Nasal [Flonase] 1 spr NS DAILY PRN 10/01/18 [History] Lisinopril 2.5 mg PO DAILY 10/01/18 [History] Aspirin Enteric Coated [Aspirin EC] 325 mg PO BID #20 tablet. 10/02/18 [Rx] Docusate [Colace] 100 mg PO BID capsule 10/02/18 [Rx] HYDROcodone/Acet 5/325 mg [[place] 5-325 mg] 1 tab PO Q6H PRN 7 Days #28 tablet 10/02/18 [Rx] Gabapentin [Neurontin] 600 mg PO TID capsule 11/29/18 [Rx] Lidocaine Patch [Lidoderm 5% patch] 1 each TP DAILY adh..patch 10/04/18 [Rx] Allergies/Adverse Reactions: Allergy/AdvReac Type Severity Reaction Status Date / Time Sulfa (Sulfonamide Allergy Hives Verified 10/01/18 08:05 Antibiotics) celecoxib [From Celebrex] AdvReac See Verified 10/01/18 08:05 Comments - Respiratory Orders None Smoking Cessation: Smoking cessation has been advised. For more information, call the [place] Tobacco Quit Line at 4-151-WYCZ-NOW. - Mobility Orders Ambulate - Rehabiliation Orders Rehab Potential: Good Rehab Orders: ROM Exercises, Evaluation for Physical Therapy, Evaluation for Occupational Therapy Other: Opsite dressing, leave intact until first post-operative visit. If dressing becomes >50% saturated, contact office, remove dressing and place appropriate dressing in its place. Do not allow for dressing to get wet. Zipline in place, plan to remove at post-operative day #14-16. Total Joint Precautions x 6 weeks Apply cold therapy wrap 3-6x/day for 20 minutes at a time. Encourage ambulation throughout the day Use Incentive spirometer 10x/hour. Elevate affected extremity above heart as tolerated. Brace: Wear knee immobilizer at night until first post-operative appt. - Treatments Skin tear care topically daily PRN per policy, May check for fecal impaction rectally daily PRN, Fleet enema rectally every other day PRN cleansing purposes - Diet Orders Regular CERTIFICATION: I certify that the transfer of the above named patient to an [facility] is necessary for the continuing treatment of the diagnosis listed. The above information is true and accurate reflection of patient's current condition. Confidential - Redisclosure prohibited without a patient's written consent.
[2018-10-02] MEDS: *HR* HYDROcodone/Acet 10/325 mg TABLET PO PRN (20:23)
[2018-10-02] MEDS: Gabapentin 300 MG CAPSULE PO SCH (23:48)
[2018-10-02] MEDS: Ketorolac 15 MG/ML VIAL IVP SCH (23:51)
[2018-10-02] MEDS: Acetaminophen IV 1,000 MG/100 ML INFUS..BTL IVPB SCH (23:52)
[2018-10-03 04:24] LABS: Hematocrit 31.4 % (37.5-50.1); Hemoglobin 10.7 g/dL (12.9-16.9)
[2018-10-03 04:44] LABS: BUN/Creatinine Ratio 25 (6-26); Blood Urea Nitrogen 19 mg/dL (8-23); Calcium 8.3 mg/dL (8.6-10.3); Carbon Dioxide 25 mEq/L (23-29); Chloride 105 mEq/L (98-107); Glucose 95 mg/dL (70-105); Osmolality,Calculated 288 (280-300); Potassium 4.1 mEq/L (3.5-5.1); Sodium 138 mEq/L (136-145); eGFR For Non-African Americans > 60 (> 60)
[2018-10-03] MEDS: Acetaminophen IV 1,000 MG/100 ML INFUS..BTL IVPB SCH ×3 (06:53→17:55)
[2018-10-03] MEDS: *HR* Enoxaparin 30 MG/0.3 ML SYRINGE SQ SCH ×2 (06:53→17:56)
[2018-10-03] MEDS: Ketorolac 15 MG/ML VIAL IVP SCH ×3 (06:59→16:28)
[2018-10-03] MEDS: Budesonide/Formoterol 80/4.5 MDI IH SCH ×2 (07:46→21:13)
[2018-10-03] MEDS: Gabapentin 300 MG CAPSULE PO SCH ×3 (09:13→21:54)
[2018-10-03] MEDS: Aspirin Enteric Coated 81 MG Tablet PO SCH (09:14)
[2018-10-03] MEDS: Furosemide 40 MG TABLET PO SCH (09:14)
--- NOTE | 2018-10-03 14:35 | Orthopedics Progress Note ---
Date of Encounter: 10/03/18 Time of Encounter: 14:35 Subjective Interval history: Patient was seen this morning doing well without complaints. Afebrile vital signs stable. Operative extremity: Neurovascularly intact Dressing clean dry and intact Calves nontender Assessment and plan: Continue with postoperative care Discharge when approved Objective Vital signs: Vital Signs Temp Pulse Resp BP Pulse Ox 10/03/18 10:52 98.3 F 69 18 135/79 96 10/03/18 07:46 16 94 10/03/18 06:32 98.7 F 69 18 138/83 98 10/03/18 03:45 98.6 F 83 15 127/78 94 10/02/18 23:53 99.1 F 94 16 143/78 95 10/02/18 20:43 16 95 10/02/18 19:55 98.3 F 74 16 140/81 96 10/02/18 16:17 98.3 F 75 15 125/73 95 Intake and Output 10/02/18 10/03/18 10/03/18 23:59 07:59 15:59 Intake Total 400 / 400 200 / 200 120 / 120 Output Total 250 / 250 Balance 400 / 400 -50 / -50 120 / 120 Intake: IV Fluids 200 / 200 Ofirmev 1,000 mg/100 ml 1,000 200 / 200 mg In 100 ml @ 400 mls/hr IVPB Q6HR [facility] Rx#:[id number] Oral 400 / 400 120 / 120 Output: Urine 250 / 250 Other: Meal Lunch Percent of Meal Consumed 60% # Voids 1 1 1 Weight 112.3 kg Patient Weight 10/03/18 23:59 Weight 112.3 kg - Labs CBC & BMP: 10/03/18 03:51 10/03/18 03:51 Labs: Abnormal lab results Hgb 10.7 g/dL (12.9-16.9) L 10/03/18 03:51 Hct 31.4 % (37.5-50.1) L 10/03/18 03:51 Calcium 8.3 mg/dL (8.6-10.3) L 10/03/18 03:51 Consult Discharge Plan - Plan Referrals: oY Burdick DO [Primary Care Provider] - Prescriptions: Aspirin Enteric Coated [Aspirin EC] 325 mg PO BID #20 tablet. HYDROcodone/Acet 5/325 mg [[place] 5-325 mg] 1 tab PO Q6H PRN 7 Days #28 tablet PRN Reason: Moderate Pain
--- NOTE | 2018-10-03 15:54 | Event Note ---
Date of Encounter: 10/03/18 Time of Encounter: 15:53 PCR - POD#2- Left TKR Tibial Revision 10/01 - Culture: no growth to date No precautions. Patient seen at bedside, without complaints. A&O x 3 Afebrile, vital signs stable. Labs reviewed. H/H - stable, asymptomatic Pain control: adequate - Added Flexeril 5mg TID, and changed to [place]* Participating in PT. All questions and concerns addressed. Educated on use of incentive spirometer. Encouraged ambulation and proper hydration. Patient educated on post-operative restrictions and post-operative care. Assessment and plan: Continue with postoperative care Discharge plan: ECF, discharge once auth'ed Short CBC 10/03/18 Range/Units 03:51 Hgb 10.7 L (12.9-16.9) g/dL Hct 31.4 L (37.5-50.1) % BMP 10/03/18 Range/Units 03:51 Sodium 138 (136-145) mEq/L Potassium 4.1 (3.5-5.1) mEq/L Chloride 105 (98-107) mEq/L Carbon Dioxide 25 (23-29) mEq/L BUN 19 (8-23) mg/dL Creatinine 0.75 (0.70-1.30) mg/dL Glucose 95 (70-105) mg/dL Calcium 8.3 L (8.6-10.3) mg/dL Vital Signs Temp Pulse Resp BP Pulse Ox 10/03/18 15:10 98.0 F 83 18 170/75 95 10/03/18 10:52 98.3 F 69 18 135/79 96 10/03/18 07:46 16 94 10/03/18 06:32 98.7 F 69 18 138/83 98 10/03/18 03:45 98.6 F 83 15 127/78 94 10/02/18 23:53 99.1 F 94 16 143/78 95 10/02/18 20:43 16 95 10/02/18 19:55 98.3 F 74 16 140/81 96 10/02/18 16:17 98.3 F 75 15 125/73 95 Intake and Output 10/02/18 10/03/18 10/03/18 23:59 07:59 15:59 Intake Total 400 / 400 200 / 200 120 / 120 Output Total 250 / 250 Balance 400 / 400 -50 / -50 120 / 120 Intake: IV Fluids 200 / 200 Ofirmev 1,000 mg/100 ml 1,000 200 / 200 mg In 100 ml @ 400 mls/hr IVPB Q6HR [facility] Rx#:[id number] Oral 400 / 400 120 / 120 Output: Urine 250 / 250 Other: Meal Lunch Percent of Meal Consumed 60% # Voids 1 1 2 Weight 112.3 kg Patient Weight 10/03/18 23:59 Weight 112.3 kg
[2018-10-03] MEDS: *HR* HYDROcodone/Acet 10/325 mg TABLET PO PRN (21:53)
[2018-10-04] MEDS: Acetaminophen IV 1,000 MG/100 ML INFUS..BTL IVPB SCH ×4 (00:35→18:33)
[2018-10-04] MEDS: *HR* Enoxaparin 30 MG/0.3 ML SYRINGE SQ SCH ×2 (06:15→17:20)
[2018-10-04] MEDS: Aspirin Enteric Coated 81 MG Tablet PO SCH (10:15)
[2018-10-04] MEDS: Furosemide 40 MG TABLET PO SCH (10:15)
[2018-10-04] MEDS: *HR* HYDROcodone/Acet 10/325 mg TABLET PO PRN (10:15)
[2018-10-04] MEDS: Gabapentin 300 MG CAPSULE PO SCH ×3 (10:16→21:17)
--- NOTE | 2018-10-04 10:54 | Orthopedics Progress Note ---
Date of Encounter: 10/04/18 Time of Encounter: 10:54 Subjective Interval history: Patient was seen this morning doing well without complaints. Afebrile vital signs stable. Operative extremity: Neurovascularly intact Dressing clean dry and intact Calves nontender Assessment and plan: Continue with postoperative care Discharge when approved Objective Vital signs: Vital Signs Temp Pulse Resp BP Pulse Ox 10/04/18 10:39 97.7 F 79 16 136/77 95 10/04/18 06:47 97.9 F 69 16 118/71 95 10/04/18 05:11 98.1 F 74 16 126/81 96 10/04/18 00:51 98.1 F 91 16 132/78 96 10/03/18 21:14 18 95 10/03/18 19:43 98.2 F 83 16 150/93 96 10/03/18 15:10 98.0 F 83 18 170/75 95 Intake and Output 10/03/18 10/04/18 10/04/18 23:59 07:59 15:59 Intake Total 200 / 200 100 / 100 240 / 240 Balance 200 / 200 100 / 100 240 / 240 Intake: IV Fluids 200 / 200 100 / 100 Ofirmev 1,000 mg/100 ml 1,000 200 / 200 100 / 100 mg In 100 ml @ 400 mls/hr IVPB Q6HR [facility] Rx#:[id number] Oral 240 / 240 Other: Meal Breakfast Percent of Meal Consumed 80% # Bowel Movements 1 Weight 112.5 kg Patient Weight 10/04/18 23:59 Weight 112.5 kg - Labs CBC & BMP: 10/03/18 03:51 10/03/18 03:51 Labs: Abnormal lab results Hgb 10.7 g/dL (12.9-16.9) L 10/03/18 03:51 Hct 31.4 % (37.5-50.1) L 10/03/18 03:51 Calcium 8.3 mg/dL (8.6-10.3) L 10/03/18 03:51 Consult Discharge Plan - Plan Referrals: Yo Burdick DO [Primary Care Provider] - Prescriptions: Aspirin Enteric Coated [Aspirin EC] 325 mg PO BID #20 tablet. HYDROcodone/Acet 5/325 mg [[place] 5-325 mg] 1 tab PO Q6H PRN 7 Days #28 tablet PRN Reason: Moderate Pain
[2018-10-04] MEDS: Budesonide/Formoterol 80/4.5 MDI IH SCH ×2 (11:19→21:28)
[2018-10-04 14:32] LABS: Hematocrit 35.2 % (37.5-50.1); Hemoglobin 11.6 g/dL (12.9-16.9)
[2018-10-04] MEDS: *HR* HYDROcodone/Acet 5/325 mg TABLET PO PRN (17:19)
[2018-10-05] MEDS: Acetaminophen IV 1,000 MG/100 ML INFUS..BTL IVPB SCH ×3 (00:18→13:00)
[2018-10-05] MEDS: *HR* Enoxaparin 30 MG/0.3 ML SYRINGE SQ SCH (06:42)
[2018-10-05] MEDS: Budesonide/Formoterol 80/4.5 MDI IH SCH (08:19)
--- NOTE | 2018-10-05 08:32 | Orthopedics Progress Note ---
Date of Encounter: 10/05/18 Time of Encounter: 08:32 Subjective Interval history: Patient was seen this morning doing well without complaints. Afebrile vital signs stable. Operative extremity: Neurovascularly intact Dressing clean dry and intact [place] nontender Assessment and plan: Continue with postoperative care Discharge when approved Objective Vital signs: Vital Signs Temp Pulse Resp BP Pulse Ox 10/05/18 08:20 15 96 10/05/18 06:51 98 F 97 16 137/79 95 10/05/18 04:41 98.1 F 94 16 133/83 94 10/04/18 23:52 98.4 F 79 16 111/75 95 10/04/18 21:29 16 96 10/04/18 19:24 98.3 F 84 15 113/64 94 10/04/18 17:28 98.5 F 93 16 130/78 93 10/04/18 14:19 98.1 F 84 16 127/74 95 10/04/18 11:20 16 95 10/04/18 10:39 97.7 F 79 16 136/77 95 Intake and Output 10/04/18 10/05/18 10/05/18 23:59 07:59 15:59 Intake Total 100 / 100 100 / 100 Output Total 400 / 400 575 / 575 Balance -300 / -300 -475 / -475 Intake: IV Fluids 100 / 100 100 / 100 Ofirmev 1,000 mg/100 ml 1,000 100 / 100 100 / 100 mg In 100 ml @ 400 mls/hr IVPB Q6HR [facility] Rx#:[id number] Output: Urine 400 / 400 575 / 575 Other: # Voids 1 Weight 112.8 kg Patient Weight 10/05/18 23:59 Weight 112.8 kg - Labs CBC & BMP: 10/04/18 13:44 10/03/18 03:51 Labs: Abnormal lab results Hgb 11.6 g/dL (12.9-16.9) L 10/04/18 13:44 Hct 35.2 % (37.5-50.1) L 10/04/18 13:44 Calcium 8.3 mg/dL (8.6-10.3) L 10/03/18 03:51 Consult Discharge Plan - Plan Referrals: Yo Burdick DO [Primary Care Provider] - Prescriptions: Aspirin Enteric Coated [Aspirin EC] 325 mg PO BID #20 tablet. HYDROcodone/Acet 5/325 mg [[place] 5-325 mg] 1 tab PO Q6H PRN 7 Days #28 tablet PRN Reason: Moderate Pain
[2018-10-05 08:35] LABS: Hematocrit 34.6 % (37.5-50.1); Hemoglobin 11.4 g/dL (12.9-16.9)
[2018-10-05] MEDS: Furosemide 40 MG TABLET PO SCH (10:09)
[2018-10-05] MEDS: *HR* HYDROcodone/Acet 10/325 mg TABLET PO PRN (10:09)
[2018-10-05] MEDS: Gabapentin 300 MG CAPSULE PO SCH (10:09)
[2018-10-05] MEDS: Aspirin Enteric Coated 81 MG Tablet PO SCH (10:09)
[2018-10-05 11:38] VITALS: BP 134/83
[2018-10-05] MEDS: traMADol 50 MG TABLET PO PRN (14:24)
== END 2018-10-05 14:40 | DRG 467 ==
LOC: SAMDAY 06:43 → 3NENU 11:07
PROVIDERS: ADMIT Orthopaedic Surgery; ATTEND Orthopaedic Surgery

== ENCOUNTER 2021-01-13 11:25 | Observation (INO) ==
[~2021-01-13 11:25] MED LIST: *HR* HYDROcodone/Acet 5/325 mg TABLET PO PRN; Acetaminophen IV 1,000 MG/100 ML BAG IVPB PRN; Ondansetron 4 MG/2 ML VIAL IVP PRN; Ringers Solution, Lactated 1,000 ML IVC SCH
[2021-01-13] MEDS ORDERED: *HR* Succinylcholine 200 MG/10 ML VIAL IVP ONE (11:42)
[2021-01-13] MEDS ORDERED: Dexamethasone 4 MG/ML VIAL ONE (11:42)
[2021-01-13] MEDS ORDERED: Ondansetron 4 MG/2 ML VIAL ONE (11:42)
[2021-01-13] MEDS ORDERED: *HR* Rocuronium Bromide 50 MG/5 ML VIAL ONE (11:42)
[2021-01-13] MEDS ORDERED: Lidocaine -MPF 2% 2 ML VIAL ONE (11:43)
[2021-01-13] MEDS ORDERED: CeFAZolin Syr 2,000MG/20 ML 2,000 MG/20 ML SYRINGE IVPB ONE (11:44)
[2021-01-13] MEDS ORDERED: *HR* FentaNYL (PF) 100 MCG/2 ML VIAL ONE (11:47)
[2021-01-13] MEDS ORDERED: *HR* Midazolam HCl 2 MG/2 ML VIAL ONE (11:48)
[2021-01-13] MEDS ORDERED: *HR* Remifentanil 1 MG VIAL IVP ONE ×2 (11:48→16:54)
[2021-01-13] MEDS ORDERED: *HR* Propofol 200 MG/20 ML VIAL IVP ONE ×2 (11:50→14:53)
[2021-01-13] MEDS ORDERED: Lidocaine HCL 4 ML Topical Solution (Laryng-O-Jet Kit Sterile Pak) TP ONE (12:48)
[2021-01-13] MEDS ORDERED: Bacitracin 50,000 UNIT, Polymyxin B Sulfate 500,000 UNIT, Sodium Chloride IRRigation 1,... IR ONE (13:00)
[2021-01-13] MEDS ORDERED: Sugammadex Sodium 200 MG/2 ML VIAL IV ONE (15:57)
[2021-01-13] MEDS ORDERED: *HR* Labetalol 20 MG/4 ML SYRINGE IVP ONE (18:05)
[2021-01-13] MEDS ORDERED: *HR* HYDROMORPHONE 2 MG/ML VIAL ONE (18:18)
[2021-01-13] MEDS: *HR* HYDROmorphone (PF) 1 MG/ML SYRINGE IVP PRN ×6 (18:38→19:16)
[2021-01-13] MEDS ORDERED: Acetaminophen 325 MG TABLET PO PRN (19:53)
[2021-01-13] MEDS ORDERED: Fluticasone Propionate Nasal 50 MCG/SPRAY BOTTLE NS PRN (19:53)
[2021-01-13] MEDS ORDERED: Naloxone 0.4 MG/ML INJ IVP PRN (19:53)
[2021-01-13] MEDS ORDERED: Ondansetron 4 MG/2 ML VIAL IVP PRN (19:53)
[2021-01-13] MEDS: *HR* OxyCODONE Immed Rel 5 MG TABLET PO PRN (20:21)
[2021-01-13] MEDS: Ringers Solution, Lactated 1,000 ML IVC SCH (20:29)
[2021-01-13] MEDS: *HR* HYDROcodone/Acet 5/325 mg TABLET PO PRN (22:20)
[2021-01-13] MEDS: Budesonide/Formoterol 80/4.5 1 PUFF INH IH SCH (22:28)
[2021-01-13] MEDS: CeFAZolin 2 GM/120 ML BAG IVPB SCH (23:43)
[2021-01-14] MEDS: *HR* OxyCODONE Immed Rel 5 MG TABLET PO PRN ×4 (03:17→17:29)
[2021-01-14] MEDS: Furosemide 40 MG TABLET PO SCH (08:28)
[2021-01-14] MEDS: lisinopriL 5 MG TABLET PO SCH (08:28)
[2021-01-14] MEDS: Loratadine 10 MG TABLET PO SCH (08:29)
[2021-01-14] MEDS: CeFAZolin 2 GM/120 ML BAG IVPB SCH (08:29)
[2021-01-14] MEDS: Budesonide/Formoterol 80/4.5 1 PUFF INH IH SCH ×2 (11:14→22:13)
[2021-01-14] MEDS: Gabapentin 300 MG CAPSULE PO PRN ×2 (12:54→20:12)
[2021-01-14] MEDS: Ringers Solution, Lactated 1,000 ML IVC SCH (15:24)
[2021-01-14] MEDS: *HR* HYDROcodone/Acet 5/325 mg TABLET PO PRN (20:12)
[2021-01-15] MEDS: *HR* OxyCODONE Immed Rel 5 MG TABLET PO PRN ×4 (01:16→19:58)
[2021-01-15] MEDS: Furosemide 40 MG TABLET PO SCH (08:14)
[2021-01-15] MEDS: lisinopriL 5 MG TABLET PO SCH (08:14)
[2021-01-15] MEDS: Loratadine 10 MG TABLET PO SCH (08:16)
[2021-01-15] MEDS: Budesonide/Formoterol 80/4.5 1 PUFF INH IH SCH ×2 (11:31→22:50)
[2021-01-15] MEDS: Acetaminophen 325 MG TABLET PO SCH ×3 (15:20→22:11)
[2021-01-15 16:05] LABS: Basophils % 0.4 %; Eosinophils # 0.1 K/mcL (0.0-0.6); Eosinophils % 1.1 %; Hematocrit 33.5 % (37.5-50.1); Immature Granulocytes % 0.8 % (0-4); Lymphocytes # 0.9 K/mcL (0.6-4.6); Lymphocytes % 9.3 %; Mean Corpuscular HGB Conc 32.8 g/dL (31.6-35.5); Mean Corpuscular Hemoglobin 27.6 pg (28.0-33.3); Mean Platelet Volume 9.5 fL (9.4-12.4); Monocytes # 1.4 K/mcL (0.0-1.3); Monocytes % 13.9 %; Neutrophils # 7.5 K/mcL (1.6-8.9); Platelet Count 141 K/mcL (140-400); Red Blood Count 3.99 M/mcL (4.19-5.50); Red Cell Distribution Width 13.2 % (11.5-14.5); Segmented Neutrophils % 74.5 %; White Blood Count 10.1 K/mcL (4.3-11.1)
[2021-01-15 16:24] LABS: BUN/Creatinine Ratio 18 (6-26); Blood Urea Nitrogen 18 mg/dL (8-23); Calcium 8.4 mg/dL (8.6-10.3); Carbon Dioxide 26 mEq/L (23-29); Chloride 101 mEq/L (98-107); Glucose 126 mg/dL (70-105); Osmolality,Calculated 281 (280-300); Potassium 3.9 mEq/L (3.5-5.1); Sodium 134 mEq/L (136-145); eGFR For African Americans > 60 (> 60); eGFR For Non-African Americans > 60 (> 60)
[2021-01-15] MEDS ORDERED: Azithromycin 500 MG in 0.9 % Sodium Chloride 250 ML IVPB SCH (17:00)
[2021-01-15] MEDS ORDERED: cefTRIAXone 1,000 MG in 0.9 % Sodium Chloride Mini Bag 100 ML IVPB SCH (17:00)
[2021-01-16 00:18] LABS: Bilirubin,Urine Negative (Negative); Blood,Urine Negative (Negative); Clarity,Urine Clear (Clear); Color,Urine Yellow (Yellow); Glucose,Urine (UA) Normal (Normal); Ketones,Urine Negative (Negative); Leukocyte Esterase,Urine Negative (Negative); Nitrite,Urine Negative (Negative); Protein,Urine Trace mg/dL (Neg-Trace); Specific Gravity,Urine 1.024 (1.010-1.025); Urobilinogen,Urine Normal (Normal)
[2021-01-16] MEDS: *HR* OxyCODONE Immed Rel 5 MG TABLET PO PRN ×3 (03:48→16:14)
[2021-01-16] MEDS: Acetaminophen 325 MG TABLET PO SCH ×2 (05:25→13:05)
[2021-01-16] MEDS: lisinopriL 5 MG TABLET PO SCH (08:56)
[2021-01-16] MEDS: Loratadine 10 MG TABLET PO SCH (08:56)
[2021-01-16] MEDS: Furosemide 40 MG TABLET PO SCH (08:56)
[2021-01-16] MEDS: *HR* HYDROcodone/Acet 5/325 mg TABLET PO PRN (08:59)
[2021-01-16] MEDS: Budesonide/Formoterol 80/4.5 1 PUFF INH IH SCH (09:47)
[2021-01-16 10:58] VITALS: BP 147/72
[2021-01-16 12:51] LABS: Influenza A PCR Negative (Negative); Influenza B PCR Negative (Negative); Resp. Syncytial Virus PCR Negative (Negative)
[2021-01-16] MEDS ORDERED: cefTRIAXone 1,000 MG in Water for inj. (sterile) 10 ML IVP ONE (13:00)
[2021-01-16] MEDS ORDERED: Azithromycin 500 MG in 0.9 % Sodium Chloride 250 ML IVPB ONE (13:00)
[2021-01-16 13:01] LABS: SARS-CoV-2 by PCR (In House) Negative (Negative)
[2021-01-17] MEDS ORDERED: Cefdinir 300 MG CAPSULE PO SCH (09:00)
[2021-01-17] MEDS ORDERED: Azithromycin 250 MG TABLET PO SCH (09:00)
== END 2021-01-16 16:16 ==
LOC: SAMDAY 11:25 → 3NENU 11:25
PROVIDERS: ADMIT Orthopaedic Surgery Orthopaedic Surgery of the Spine; ATTEND Orthopaedic Surgery Orthopaedic Surgery of the Spine